=== PATIENT | female | born 1945 | race Caucasian/White ===

== ENCOUNTER → 2016-02-24 | Outpatient (CLI) | payer MEDICARE, BC ==
[~2016-02-24] MED LIST: ADULT LOW DOSE81 MG PO; ATENOLOL50 MG PO; ATORVASTATIN CA40 MG; COZAAR25 M1 PO; FISH OIL1 IU PO; ISOSORBIDE30 MG PO; KLOR-CON 1010 MEQ PO; KLOR-CON SPRIN10 MEQ PO; LASIX40 M1 PO; LEVOTHYROXIN0.088 MG PO; LIPITOR 40MG TA40 MG PO; LISINOPRIL20 MG PO; MIRALAX17 GM PO; NITROGLYCERIN0.4 M1 SL; OXYCODONE; PLAVIX 75MG TAB75 MG PO; POT CL MICRO PO; PROTONIX TR40 M1 PO; SENNA-GEN8.6 M1 PO; TENORMIN50 M1 PO; TOPROL XL 25MG25 MG PO; ZOLOFT 50MG50 MG PO
== END ==
LOC: VAS 15:39
DX: I25.10 Atherosclerotic heart disease of native coronary artery without angina pectoris (principal); I10 Essential (primary) hypertension

== ENCOUNTER → 2016-04-26 | Outpatient (CLI) | payer MEDICARE, BC ==
[2015-04-01 05:58] VITALS: BP 116/76
== END ==
LOC: MAMMO 07:34
DX: Z12.31 Encounter for screening mammogram for malignant neoplasm of breast (principal)

== ENCOUNTER 2016-10-29 08:46 | Emergency (ER) | payer MEDICARE, BC ==
[2016-10-29] MEDS ORDERED: TORSEMIDE20 M1 PO (09:01)
[2016-10-29] MEDS ORDERED: CRESTOR20 MG PO ×2 (09:02→09:03)
[2016-10-29] MEDS ORDERED: AZITHROMYCIN 250MGPK PO (10:39)
[2016-10-29] MEDS ORDERED: PREDNISONE20 M1 PO (10:39)
[2016-10-29] MEDS ORDERED: IPRATROPIUM BROM3 M1 IH (10:39)
[2016-10-29 11:12] VITALS: BP 140/49
== END 2016-10-29 11:13 | disposition home or self-care (01) ==
LOC: ED 08:46
DX: J44.1 Chronic obstructive pulmonary disease with (acute) exacerbation (principal); E87.6 Hypokalemia; I11.0 Hypertensive heart disease with heart failure; I50.9 Heart failure, unspecified; I25.10 Atherosclerotic heart disease of native coronary artery without angina pectoris; Z95.5 Presence of coronary angioplasty implant and graft; J44.9 Chronic obstructive pulmonary disease, unspecified; E78.5 Hyperlipidemia, unspecified; Z87.891 Personal history of nicotine dependence; Z95.1 Presence of aortocoronary bypass graft

== ENCOUNTER 2017-04-03 13:34 | Emergency (ER) | payer MEDICARE, BC ==
[~2017-04-03] VITALS: Wt 72.2 kg
[~2017-04-03 13:34] MED LIST changes: +AZITHROMYCIN 250MGPK PO; +CRESTOR20 MG PO; +IPRATROPIUM BROM3 M1 IH; +PREDNISONE20 M1 PO; +TORSEMIDE20 M1 PO
[2017-04-03 14:23] LABS: EOS # 0.1 (0.04-0.40); HEMATOCRIT 35.9 % (37.0-47.0); HEMOGLOBIN 11.1 g/dL (12.5-16.0); LYMPH# 1.5 (1.50-4.00); MEAN CELL VOLUME 85 fl (78-100); MEAN CORPUSCULAR HEMOGLOBIN 26 pg (27-31); MEAN CORPUSCULAR HGB CONC 31 g/dL (33-37); MEAN PLATELET VOLUME 11.1 fl (7.4-10.4); MONO # 0.6 (0.20-0.80); NEU # 5.7 (1.40-6.50); PLATELET COUNT 201 K/mm3 (130-400); RED BLOOD COUNT 4.25 M/mm3 (4.10-5.30); RED CELL DISTRIBUTION WIDTH 16.4 % (11.5-14.5); WHITE BLOOD COUNT 7.9 K/mm3 (4.8-10.8)
[2017-04-03 14:37] LABS: PH-URINE 6.5 (5.0 - 8.0); URINE APPEARANCE CLEAR; URINE BILIRUBIN NEGATIVE (NEGATIVE); URINE BLOOD NEGATIVE (NEGATIVE); URINE COLOR YELLOW; URINE GLUCOSE NEGATIVE (NEGATIVE); URINE KETONE NEGATIVE (NEGATIVE); URINE LEUKOCYTE ESTERASE NEGATIVE (NEGATIVE); URINE MUCUS PRESENT (NOT PRESENT); URINE NITRATE NEGATIVE (NEGATIVE); URINE PROTEIN(semi-quant) TRACE mg/dL (NEGATIVE); URINE UROBILINOGEN NORMAL (NORMAL)
[2017-04-03 14:37] LABS: ALBUMIN 3.6 g/dL (3.5-5.0); BUN/CREATININE RATIO 15.8 (6.0-26.0); CALCIUM 8.7 mg/dL (8.4-10.2); POTASSIUM 3.3 mmol/L (3.6-5.0); TOTAL BILIRUBIN 0.6 mg/dL (0.2-1.3); TOTAL PROTEIN 7.2 g/dL (6.3-8.2)
[2017-04-03] MEDS ORDERED: GOOD NEIGHBOR500 M2 PO (14:46)
[2017-04-03] MEDS ORDERED: MUCINEX DM 60 M1 TER PO (14:48)
[2017-04-03] MEDS ORDERED: MIRALAX17 GM PO (14:50)
[2017-04-03] MEDS ORDERED: PROMETHAZINE12.5 M5 PO (16:02)
[2017-04-03] MEDS ORDERED: FLAGYL500 M1 PO (16:02)
[2017-04-03] MEDS ORDERED: CIPRO500 M1 PO (16:02)
[2017-04-03 16:20] VITALS: BP 129/56
== END 2017-04-03 16:34 | disposition home or self-care (01) ==
LOC: ED 13:34
PROVIDERS: Nurse Practitioner Primary Care
DX: K57.32 Diverticulitis of large intestine without perforation or abscess without bleeding (principal); I25.10 Atherosclerotic heart disease of native coronary artery without angina pectoris; I11.0 Hypertensive heart disease with heart failure; I50.9 Heart failure, unspecified; Z95.1 Presence of aortocoronary bypass graft; Z87.891 Personal history of nicotine dependence; J44.9 Chronic obstructive pulmonary disease, unspecified; Z95.820 Peripheral vascular angioplasty status with implants and grafts; Z90.49 Acquired absence of other specified parts of digestive tract; E03.9 Hypothyroidism, unspecified; K21.9 Gastro-esophageal reflux disease without esophagitis; Z79.02 Long term (current) use of antithrombotics/antiplatelets; Z88.6 Allergy status to analgesic agent; Z88.8 Allergy status to other drugs, medicaments and biological substances; Z79.82 Long term (current) use of aspirin; Z95.5 Presence of coronary angioplasty implant and graft; I25.2 Old myocardial infarction
CPT/HCPCS: J2405; J7030; Q9967

== ENCOUNTER → 2017-08-22 | Outpatient (CLI) | payer MEDICARE, BC ==
[~2017-08-22] MED LIST changes: +CIPRO500 M1 PO; +FLAGYL500 M1 PO; +GOOD NEIGHBOR500 M2 PO; +MUCINEX DM 60 M1 TER PO; +PROMETHAZINE12.5 M5 PO
== END ==
LOC: MAMMO 15:03
DX: Z12.31 Encounter for screening mammogram for malignant neoplasm of breast (principal)

== ENCOUNTER → 2017-08-22 | Outpatient (CLI) | payer MEDICARE, BC | LOC: RAD 15:04 → MAMMO 16:00 → RAD 16:00 | DX: Z13.820 Encounter for screening for osteoporosis (principal); M85.80 Other specified disorders of bone density and structure, unspecified site ==

== ENCOUNTER 2017-10-19 11:00 | Outpatient (RCR) | payer MEDICARE, BC | END 2017-10-19 11:30 | disposition home or self-care (01) | LOC: OT 11:00 | DX: M18.11 Unilateral primary osteoarthritis of first carpometacarpal joint, right hand (principal) ==

== ENCOUNTER 2017-11-18 23:15 | Emergency (ER) | payer MEDICARE, BC ==
[~2017-11-18] VITALS: Ht 152.4 cm; Wt 72.7 kg
[2017-11-19] MEDS ORDERED: POTASSIUM CHLO20 ME3 PO
[2017-11-19 00:24] LABS: ALBUMIN 4.5 g/dL (3.5-5.0); TOTAL BILIRUBIN 0.6 mg/dL (0.2-1.3); TOTAL PROTEIN 7.7 g/dL (6.3-8.2)
[2017-11-19 00:36] LABS: HEMATOCRIT 41.2 % (37.0-47.0); HEMOGLOBIN 13.5 g/dL (12.5-16.0); MEAN CELL VOLUME 84 fl (78-100); MEAN CORPUSCULAR HEMOGLOBIN 28 pg (27-31); MEAN CORPUSCULAR HGB CONC 33 g/dL (33-37); MEAN PLATELET VOLUME 11.3 fl (7.4-10.4); PLATELET COUNT 195 K/mm3 (130-400); RED BLOOD COUNT 4.91 M/mm3 (4.10-5.30); RED CELL DISTRIBUTION WIDTH 16.5 % (11.5-14.5); WHITE BLOOD COUNT 11.7 K/mm3 (4.8-10.8)
[2017-11-19 00:43] LABS: LYMPHOCYTE 16 % (20-51); MONOCYTE 2 % (3-10); NEUTROPHILS 82 % (42-75)
[2017-11-19 00:54] LABS: URINE APPEARANCE HAZY; URINE COLOR YELLOW
[2017-11-19 00:55] LABS: PH-URINE 5.5 (5.0 - 8.0); URINE BILIRUBIN NEGATIVE (NEGATIVE); URINE BLOOD TRACE (NEGATIVE); URINE GLUCOSE NEGATIVE (NEGATIVE); URINE KETONE NEGATIVE (NEGATIVE); URINE LEUKOCYTE ESTERASE 2+ (NEGATIVE); URINE NITRATE NEGATIVE (NEGATIVE); URINE PROTEIN(semi-quant) 2+ mg/dL (NEGATIVE); URINE UROBILINOGEN NORMAL (NORMAL); URINE WBC >50 /hpf (0-3)
[2017-11-19] MEDS ORDERED: MACROBID 100 M100 MG PO (02:31)
[2017-11-19 02:43] VITALS: BP 179/78
== END 2017-11-19 02:43 | disposition home or self-care (01) ==
LOC: ED 23:15
PROVIDERS: Nurse Practitioner
DX: N30.00 Acute cystitis without hematuria (principal); R10.84 Generalized abdominal pain; R11.2 Nausea with vomiting, unspecified; I25.10 Atherosclerotic heart disease of native coronary artery without angina pectoris; I11.0 Hypertensive heart disease with heart failure; I50.9 Heart failure, unspecified; Z95.1 Presence of aortocoronary bypass graft; Z87.891 Personal history of nicotine dependence; Z90.49 Acquired absence of other specified parts of digestive tract; Z79.899 Other long term (current) drug therapy; Z79.02 Long term (current) use of antithrombotics/antiplatelets; Z79.82 Long term (current) use of aspirin
CPT/HCPCS: J0696; J2270; J2405; J7030

== ENCOUNTER → 2018-01-18 | Outpatient (CLI) | payer MEDICARE, BC ==
[~2018-01-18] MED LIST changes: +MACROBID 100 M100 MG PO; +POTASSIUM CHLO20 ME3 PO
== END ==
LOC: VAS 16:33 → RAD 16:33
DX: I08.0 Rheumatic disorders of both mitral and aortic valves (principal)

== ENCOUNTER 2018-05-16 15:56 | Emergency (ER) | payer MEDICARE, BC ==
[2018-05-16 17:33] LABS: CALCIUM 8.5 mg/dL (8.4-10.2); POTASSIUM 3.4 mmol/L (3.6-5.0); TOTAL BILIRUBIN 0.5 mg/dL (0.2-1.3)
[2018-05-16 17:46] LABS: EOS # 0.1 (0.04-0.40); EOS % 0.7 % (1.0-5.0); HEMATOCRIT 40.6 % (37.0-47.0); LYMPH# 2.3 (1.50-4.00); MEAN CELL VOLUME 85 fl (78-100); MEAN CORPUSCULAR HEMOGLOBIN 27 pg (27-31); MEAN CORPUSCULAR HGB CONC 32 g/dL (33-37); MEAN PLATELET VOLUME 11.2 fl (7.4-10.4); MONO # 0.7 (0.20-0.80); NEU # 7.2 (1.40-6.50); PLATELET COUNT 174 K/mm3 (130-400); RED CELL DISTRIBUTION WIDTH 17.1 % (11.5-14.5); WHITE BLOOD COUNT 10.2 K/mm3 (4.8-10.8)
[2018-05-16] MEDS ORDERED: ZOFRAN ODT4 MG PO (20:57)
[2018-05-16 21:17] LABS: URINE APPEARANCE CLEAR; URINE BILIRUBIN NEGATIVE (NEGATIVE); URINE BLOOD TRACE (NEGATIVE); URINE COLOR YELLOW; URINE GLUCOSE NEGATIVE (NEGATIVE); URINE KETONE NEGATIVE (NEGATIVE); URINE LEUKOCYTE ESTERASE 1+ (NEGATIVE); URINE NITRATE NEGATIVE (NEGATIVE); URINE PROTEIN(semi-quant) 1+ mg/dL (NEGATIVE); URINE UROBILINOGEN NORMAL (NORMAL)
[2018-05-16] MEDS ORDERED: MACROBID 100 M100 MG PO (21:22)
[2018-05-16 21:29] VITALS: BP 110/69
== END 2018-05-16 21:29 | disposition home or self-care (01) ==
LOC: ED 15:56
PROVIDERS: Nurse Practitioner
DX: K52.9 Noninfective gastroenteritis and colitis, unspecified (principal); E86.0 Dehydration; N39.0 Urinary tract infection, site not specified; I11.0 Hypertensive heart disease with heart failure; I50.9 Heart failure, unspecified; E03.9 Hypothyroidism, unspecified; Z88.6 Allergy status to analgesic agent; Z79.82 Long term (current) use of aspirin; Z79.02 Long term (current) use of antithrombotics/antiplatelets; Z90.49 Acquired absence of other specified parts of digestive tract
CPT/HCPCS: J2405; J7030

== ENCOUNTER 2018-06-15 11:00 | Outpatient (RCR) | payer MEDICARE, BC ==
[~2018-06-15 11:00] MED LIST changes: +ZOFRAN ODT4 MG PO
== END 2018-06-15 11:30 ==
LOC: PT 11:00
DX: M54.5 Low back pain (principal)

== ENCOUNTER → 2018-08-06 | Day surgery (SDC) | payer MEDICARE, BC | LOC: MSO 07:17 | DX: K63.5 Polyp of colon (principal); D50.9 Iron deficiency anemia, unspecified; I25.10 Atherosclerotic heart disease of native coronary artery without angina pectoris; I11.0 Hypertensive heart disease with heart failure; I50.9 Heart failure, unspecified; I73.9 Peripheral vascular disease, unspecified; I25.2 Old myocardial infarction; J44.9 Chronic obstructive pulmonary disease, unspecified; K21.9 Gastro-esophageal reflux disease without esophagitis; F41.9 Anxiety disorder, unspecified; E03.9 Hypothyroidism, unspecified; E11.9 Type 2 diabetes mellitus without complications; R55 Syncope and collapse; Z86.010 Personal history of colon polyps; Z79.82 Long term (current) use of aspirin; Z79.02 Long term (current) use of antithrombotics/antiplatelets; Z90.49 Acquired absence of other specified parts of digestive tract; Z98.61 Coronary angioplasty status; Z87.891 Personal history of nicotine dependence | CPT/HCPCS: 00811; J2704; J7120 ==

== ENCOUNTER → 2019-12-30 | Outpatient (CLI) | payer MEDICARE, BC | LOC: VAS 15:11 | DX: I65.23 Occlusion and stenosis of bilateral carotid arteries (principal); I65.02 Occlusion and stenosis of left vertebral artery; I10 Essential (primary) hypertension; I35.0 Nonrheumatic aortic (valve) stenosis; I25.10 Atherosclerotic heart disease of native coronary artery without angina pectoris ==

== ENCOUNTER → 2020-03-10 | Outpatient (CLI) | payer MEDICARE, BC | LOC: MAMMO 09:54 | DX: Z12.31 Encounter for screening mammogram for malignant neoplasm of breast (principal); Z95.818 Presence of other cardiac implants and grafts ==

== ENCOUNTER → 2020-03-10 | Outpatient (CLI) | payer MEDICARE, BC | LOC: MAMMO 09:56 | DX: Z13.820 Encounter for screening for osteoporosis (principal); M85.80 Other specified disorders of bone density and structure, unspecified site; Z78.0 Asymptomatic menopausal state ==

== ENCOUNTER 2020-04-29 09:29 | Emergency (ER) | payer MEDICARE, BC ==
[~2020-04-29 09:29] MED LIST changes: +CLOPIDOGREL PO; -PLAVIX 75MG TAB75 MG PO
[2020-04-29 11:46] LABS: EOS # 0.1 (0.04-0.40); EOS % 0.6 % (1.0-5.0); HEMATOCRIT 48.6 % (37.0-47.0); HEMOGLOBIN 15.8 g/dL (12.5-16.0); LYMPH# 1.1 (1.50-4.00); MEAN CELL VOLUME 85 fl (78-100); MEAN CORPUSCULAR HEMOGLOBIN 28 pg (27-31); MEAN CORPUSCULAR HGB CONC 33 g/dL (33-37); MEAN PLATELET VOLUME 10.3 fl (7.4-10.4); MONO # 0.4 (0.20-0.80); NEU # 6.2 (1.40-6.50); PLATELET COUNT 194 K/mm3 (130-400); RED BLOOD COUNT 5.73 M/mm3 (4.10-5.30); RED CELL DISTRIBUTION WIDTH 15.7 % (11.5-14.5); WHITE BLOOD COUNT 7.8 K/mm3 (4.8-10.8)
[2020-04-29 11:50] LABS: ALBUMIN 4.9 g/dL (3.4-4.8)
[2020-04-29 11:51] LABS: POTASSIUM 3.4 mmol/L (3.5-5.1)
[2020-04-29 11:52] LABS: CALCIUM 10.5 mg/dL (8.3-10.5)
[2020-04-29 11:53] LABS: TOTAL PROTEIN 8.1 g/dL (6.2-8.1)
[2020-04-29 11:55] LABS: TOTAL BILIRUBIN 0.8 mg/dL (0.2-1.2)
[2020-04-29 12:58] LABS: PH-URINE 5.5 (5.0 - 8.0); URINE APPEARANCE CLEAR; URINE BILIRUBIN NEGATIVE (NEGATIVE); URINE COLOR YELLOW; URINE GLUCOSE NEGATIVE (NEGATIVE); URINE KETONE NEGATIVE (NEGATIVE); URINE NITRATE NEGATIVE (NEGATIVE); URINE PROTEIN(semi-quant) 1+ mg/dL (NEGATIVE); URINE UROBILINOGEN NORMAL (NORMAL)
[2020-04-29 12:59] LABS: URINE BLOOD NEGATIVE (NEGATIVE); URINE LEUKOCYTE ESTERASE TRACE (NEGATIVE)
[2020-04-29] MEDS ORDERED: CYCLOBENZAPRINE10 M1 PO (17:12)
[2020-04-29 17:42] VITALS: BP 158/75
== END 2020-04-29 17:38 | disposition home or self-care (01) ==
LOC: ED 09:29
PROVIDERS: Physician Assistant
DX: M62.838 Other muscle spasm (principal); I10 Essential (primary) hypertension; I25.2 Old myocardial infarction; Z79.82 Long term (current) use of aspirin; Z79.02 Long term (current) use of antithrombotics/antiplatelets; Z88.6 Allergy status to analgesic agent; Z88.1 Allergy status to other antibiotic agents
CPT/HCPCS: J2270; J3010; J3360

== ENCOUNTER 2020-08-11 09:21 | Emergency (ER) | payer MEDICARE, BC ==
[~2020-08-11 09:21] MED LIST changes: +CYCLOBENZAPRINE10 M1 PO
[2020-08-11 10:41] LABS: BASO # 0.03 (0.02-0.10); EOS # 0.03 (0.04-0.40); EOS % 0.3 % (1.0-5.0); HEMATOCRIT 47.2 % (37.0-47.0); HEMOGLOBIN 15.4 g/dL (12.5-16.0); MEAN CELL VOLUME 92 fl (78-100); MEAN CORPUSCULAR HEMOGLOBIN 30 pg (27-31); MEAN CORPUSCULAR HGB CONC 33 g/dL (33-37); MEAN PLATELET VOLUME 10.2 fl (7.4-10.4); MONO # 0.33 (0.20-0.80); NEU # 8.44 (1.40-6.50); PLATELET COUNT 194 K/mm3 (130-400); RED BLOOD COUNT 5.13 M/mm3 (4.10-5.30); RED CELL DISTRIBUTION WIDTH 16.8 % (11.5-14.5)
[2020-08-11 10:51] LABS: ALBUMIN 4.1 g/dL (3.4-4.8)
[2020-08-11 10:52] LABS: POTASSIUM 4.4 mmol/L (3.5-5.1); SODIUM 141 mmol/L (136-145)
[2020-08-11 10:53] LABS: CALCIUM 9.4 mg/dL (8.3-10.5)
[2020-08-11 10:54] LABS: GLUCOSE 142 mg/dL (65-105); TOTAL PROTEIN 6.8 g/dL (6.2-8.1)
[2020-08-11 10:55] LABS: CARBON DIOXIDE 22 mmol/L (23-31); PARTIAL THROMBOPLASTIN TIME 21.1 SECONDS (21.0-32.0); PROTHROMBIN TIME 9.5 SECONDS (9.0-12.0)
[2020-08-11 10:56] LABS: TOTAL BILIRUBIN 0.6 mg/dL (0.2-1.2)
[2020-08-11 10:59] LABS: AST-SGOT 15 U/L (5-34)
[2020-08-11 11:01] LABS: ALT/SGPT 9 U/L (0-55); LIPASE 35 U/L (8-78)
[2020-08-11 11:27] LABS: TROPONIN-I < 0.03 ng/mL (<0.030)
[2020-08-11 13:53] LABS: URINE APPEARANCE CLOUDY; URINE COLOR YELLOW
[2020-08-11 13:54] LABS: URINE BILIRUBIN NEGATIVE (NEGATIVE); URINE BLOOD TRACE (NEGATIVE); URINE GLUCOSE NEGATIVE (NEGATIVE); URINE KETONE NEGATIVE (NEGATIVE); URINE LEUKOCYTE ESTERASE NEGATIVE (NEGATIVE); URINE MUCUS PRESENT (NOT PRESENT); URINE NITRATE NEGATIVE (NEGATIVE); URINE PROTEIN(semi-quant) 2+ mg/dL (NEGATIVE); URINE UROBILINOGEN NORMAL (NORMAL)
[2020-08-11 17:24] VITALS: BP 161/97
== END 2020-08-11 15:15 | disposition short-term general hospital (02) ==
LOC: ED 09:21
PROVIDERS: Nurse Practitioner
DX: K55.059 Acute (reversible) ischemia of intestine, part and extent unspecified (principal); K56.699 Other intestinal obstruction unspecified as to partial versus complete obstruction; I11.0 Hypertensive heart disease with heart failure; I50.9 Heart failure, unspecified; I25.2 Old myocardial infarction; J44.9 Chronic obstructive pulmonary disease, unspecified; Z90.49 Acquired absence of other specified parts of digestive tract; Z79.82 Long term (current) use of aspirin; Z79.02 Long term (current) use of antithrombotics/antiplatelets; Z79.899 Other long term (current) drug therapy; Z88.6 Allergy status to analgesic agent; Z20.822 Contact with and (suspected) exposure to COVID-19
CPT/HCPCS: J2270; J2405; J2543; J3010; Q9967

== ENCOUNTER 2020-08-31 11:36 | Emergency (ER) | payer MEDICARE, BC ==
[2020-08-31 12:21] LABS: BASO # 0.03 (0.02-0.10); EOS # 0.06 (0.04-0.40); EOS % 0.5 % (1.0-5.0); HEMATOCRIT 26.1 % (37.0-47.0); HEMOGLOBIN 8.5 g/dL (12.5-16.0); LYMPH# 0.89 (1.50-4.00); MEAN CELL VOLUME 94 fl (78-100); MEAN CORPUSCULAR HEMOGLOBIN 31 pg (27-31); MEAN CORPUSCULAR HGB CONC 33 g/dL (33-37); MEAN PLATELET VOLUME 10.6 fl (7.4-10.4); MONO # 0.45 (0.20-0.80); PLATELET COUNT 382 K/mm3 (130-400); RED BLOOD COUNT 2.79 M/mm3 (4.10-5.30); RED CELL DISTRIBUTION WIDTH 15.9 % (11.5-14.5); WHITE BLOOD COUNT 12.5 K/mm3 (4.8-10.8)
[2020-08-31 12:38] LABS: ALBUMIN 3.2 g/dL (3.4-4.8)
[2020-08-31 12:39] LABS: POTASSIUM 3.7 mmol/L (3.5-5.1)
[2020-08-31 12:40] LABS: CALCIUM 9.3 mg/dL (8.3-10.5)
[2020-08-31 12:41] LABS: TOTAL PROTEIN 6.4 g/dL (6.2-8.1)
[2020-08-31 12:43] LABS: TOTAL BILIRUBIN 0.4 mg/dL (0.2-1.2)
[2020-08-31 17:30] VITALS: BP 126/68
== END 2020-08-31 17:21 | disposition short-term general hospital (02) ==
LOC: ED 11:36
PROVIDERS: Nurse Practitioner Primary Care
DX: N73.9 Female pelvic inflammatory disease, unspecified (principal); D64.9 Anemia, unspecified; I50.9 Heart failure, unspecified; J44.9 Chronic obstructive pulmonary disease, unspecified; I11.0 Hypertensive heart disease with heart failure; I25.2 Old myocardial infarction; Z79.82 Long term (current) use of aspirin; Z79.02 Long term (current) use of antithrombotics/antiplatelets; Z79.899 Other long term (current) drug therapy
CPT/HCPCS: J1335; J2270; J7030; Q9967

== ENCOUNTER 2020-09-09 14:32 | Inpatient (IN) | payer MEDICARE, BC ==
[~2020-09-09] VITALS: Ht 152.4 cm; Wt 48.6 kg
[2020-09-09 15:30] VITALS: BP 124/65
[2020-09-09] MEDS ORDERED: FLUCONAZOLE200 MG PO (15:53)
[2020-09-09] MEDS ORDERED: METRONIDAZOLE500 M1 PO (15:53)
[2020-09-09] MEDS ORDERED: ROCEPHIN 2 G2 G/VIAL IJ (15:55)
[2020-09-09] MEDS ORDERED: LEVOTHYROXINE0.2 MG PO (16:00)
[2020-09-09] MEDS ORDERED: LOSARTAN POTASS50 M1 PO (16:01)
[2020-09-10 06:09] VITALS: BP 123/66
[2020-09-10 07:37] LABS: BASO # 0.05 (0.02-0.10); EOS # 0.16 (0.04-0.40); EOS % 2.1 % (1.0-5.0); HEMATOCRIT 29.8 % (37.0-47.0); HEMOGLOBIN 9.3 g/dL (12.5-16.0); LYMPH# 1.51 (1.50-4.00); MEAN CELL VOLUME 93 fl (78-100); MEAN CORPUSCULAR HEMOGLOBIN 29 pg (27-31); MEAN CORPUSCULAR HGB CONC 31 g/dL (33-37); MEAN PLATELET VOLUME 10.6 fl (7.4-10.4); MONO # 0.89 (0.20-0.80); PLATELET COUNT 349 K/mm3 (130-400); RED BLOOD COUNT 3.21 M/mm3 (4.10-5.30); WHITE BLOOD COUNT 7.7 K/mm3 (4.8-10.8)
[2020-09-10 07:40] LABS: ALBUMIN 3.4 g/dL (3.4-4.8)
[2020-09-10 07:41] LABS: CALCIUM 9.4 mg/dL (8.3-10.5)
[2020-09-10 07:42] LABS: TOTAL PROTEIN 6.8 g/dL (6.2-8.1)
[2020-09-10 07:44] LABS: TOTAL BILIRUBIN 0.3 mg/dL (0.2-1.2)
[2020-09-10 17:14] VITALS: BP 127/72
[2020-09-11 05:52] VITALS: BP 138/88
[2020-09-11 07:14] LABS: URINE APPEARANCE CLEAR; URINE BILIRUBIN NEGATIVE (NEGATIVE); URINE BLOOD NEGATIVE (NEGATIVE); URINE COLOR YELLOW; URINE GLUCOSE NEGATIVE (NEGATIVE); URINE KETONE NEGATIVE (NEGATIVE); URINE LEUKOCYTE ESTERASE TRACE (NEGATIVE); URINE NITRATE NEGATIVE (NEGATIVE); URINE PROTEIN(semi-quant) TRACE mg/dL (NEGATIVE); URINE UROBILINOGEN NORMAL (NORMAL)
[2020-09-11 17:20] VITALS: BP 88/55
[2020-09-11 17:28] VITALS: BP 96/56
[2020-09-12 06:28] VITALS: BP 122/72
[2020-09-12 17:04] VITALS: BP 144/76
[2020-09-13 05:45] VITALS: BP 130/80
[2020-09-13 18:11] VITALS: BP 126/58
[2020-09-14 06:10] VITALS: BP 117/66
[2020-09-14] MEDS ORDERED: LOPRESSOR 225 MG/TAB PO (09:40)
[2020-09-14] MEDS ORDERED: ROXICODONE 55 MG/TAB PO (09:42)
[2020-09-14] MEDS ORDERED: SALAGEN 5MG TAB5 MG PO (09:43)
[2020-09-14] MEDS ORDERED: K-TAB20 MEQ PO (09:44)
[2020-09-14] MEDS ORDERED: SEROQUEL 2525 MG/TAB PO (09:46)
[2020-09-14 17:11] VITALS: BP 120/64
[2020-09-15 06:20] VITALS: BP 137/70
[2020-09-15 17:03] VITALS: BP 114/60
[2020-09-16 05:25] VITALS: BP 128/74
[2020-09-16 06:50] LABS: ALBUMIN 3.2 g/dL (3.4-4.8)
[2020-09-16 06:51] LABS: POTASSIUM 4.8 mmol/L (3.5-5.1)
[2020-09-16 06:52] LABS: CALCIUM 9.4 mg/dL (8.3-10.5)
[2020-09-16 06:53] LABS: BASO # 0.04 (0.02-0.10); EOS # 0.08 (0.04-0.40); EOS % 1.7 % (1.0-5.0); HEMATOCRIT 29.3 % (37.0-47.0); HEMOGLOBIN 8.9 g/dL (12.5-16.0); LYMPH# 1.28 (1.50-4.00); MEAN CELL VOLUME 98 fl (78-100); MEAN CORPUSCULAR HEMOGLOBIN 30 pg (27-31); MEAN CORPUSCULAR HGB CONC 30 g/dL (33-37); MEAN PLATELET VOLUME 10.7 fl (7.4-10.4); MONO # 0.49 (0.20-0.80); NEU # 2.91 (1.40-6.50); PLATELET COUNT 282 K/mm3 (130-400); RED BLOOD COUNT 2.98 M/mm3 (4.10-5.30); RED CELL DISTRIBUTION WIDTH 17.6 % (11.5-14.5); TOTAL PROTEIN 6.1 g/dL (6.2-8.1); WHITE BLOOD COUNT 4.8 K/mm3 (4.8-10.8)
[2020-09-16 06:55] LABS: TOTAL BILIRUBIN 0.2 mg/dL (0.2-1.2)
[2020-09-16] MEDS ORDERED: FLUCONAZOLE200 MG PO (09:10)
[2020-09-16] MEDS ORDERED: METRONIDAZOLE500 M1 PO (09:10)
== END 2020-09-16 10:44 | disposition home or self-care (01) | DRG 949 ==
LOC: MED/SURG 14:32
PROVIDERS: Physician Assistant; ADMIT Family Medicine
DX: T81.49XD Infection following a procedure, other surgical site, subsequent encounter (principal); I13.0 Hypertensive heart and chronic kidney disease with heart failure and stage 1 through stage 4 chronic kidney disease, or unspecified chronic kidney disease; L02.211 Cutaneous abscess of abdominal wall; I50.9 Heart failure, unspecified; N18.9 Chronic kidney disease, unspecified; I25.10 Atherosclerotic heart disease of native coronary artery without angina pectoris; J44.9 Chronic obstructive pulmonary disease, unspecified; D63.1 Anemia in chronic kidney disease; E03.9 Hypothyroidism, unspecified; K21.9 Gastro-esophageal reflux disease without esophagitis; I35.0 Nonrheumatic aortic (valve) stenosis; R53.81 Other malaise; Z79.82 Long term (current) use of aspirin; Z79.02 Long term (current) use of antithrombotics/antiplatelets; Z88.1 Allergy status to other antibiotic agents; Z88.6 Allergy status to analgesic agent
CPT/HCPCS: J0696; J1650

== ENCOUNTER → 2020-09-23 | Outpatient (CLI) | payer MEDICARE, BC ==
[~2020-09-23] MED LIST changes: +FLUCONAZOLE200 MG PO; +K-TAB20 MEQ PO; +LEVOTHYROXINE0.2 MG PO; +LOPRESSOR 225 MG/TAB PO; +LOSARTAN POTASS50 M1 PO; +METRONIDAZOLE500 M1 PO; +ROCEPHIN 2 G2 G/VIAL IJ; +ROXICODONE 55 MG/TAB PO; +SALAGEN 5MG TAB5 MG PO; +SEROQUEL 2525 MG/TAB PO
[2020-09-23 09:20] LABS: HEMOGLOBIN 10.7 g/dL (12.5-16.0); MEAN PLATELET VOLUME 10.8 fl (7.4-10.4); RED BLOOD COUNT 3.59 M/mm3 (4.10-5.30); RED CELL DISTRIBUTION WIDTH 18.2 % (11.5-14.5); WHITE BLOOD COUNT 5.8 K/mm3 (4.8-10.8)
[2020-09-23 09:31] LABS: ALBUMIN 3.5 g/dL (3.4-4.8)
[2020-09-23 09:32] LABS: CALCIUM 10.3 mg/dL (8.3-10.5)
[2020-09-23 09:35] LABS: TOTAL BILIRUBIN 0.2 mg/dL (0.2-1.2)
== END ==
LOC: LAB 09:00
PROVIDERS: Physician Assistant
DX: L02.211 Cutaneous abscess of abdominal wall (principal)

== ENCOUNTER 2020-09-25 08:52 | Outpatient (RCR) | payer MEDICARE, BC ==
[2020-09-17 08:50] VITALS: BP 100/61
[2020-09-17 09:25] VITALS: BP 100/55
[2020-09-18 09:15] VITALS: BP 102/54
[2020-09-19 09:13] VITALS: BP 103/50
[2020-09-20 09:08] VITALS: BP 141/94
[2020-09-21 09:06] VITALS: BP 132/68
[2020-09-22 09:08] VITALS: BP 99/57
[2020-09-22 09:20] VITALS: BP 121/68
[2020-09-23 09:13] VITALS: BP 115/65
[2020-09-24 09:35] VITALS: BP 126/62
[~2020-09-25] VITALS: Ht 152.4 cm; Wt 48.6 kg
[2020-09-25 09:00] VITALS: BP 95/47
[2020-09-25 09:08] VITALS: BP 116/65
== END 2020-09-25 10:00 | disposition home or self-care (01) ==
LOC: AMSURD 08:52
DX: L02.211 Cutaneous abscess of abdominal wall (principal)
CPT/HCPCS: J0696